=== PATIENT | female | born 2000 | race Hispanic/Latino ===

== ENCOUNTER 2020-12-23 22:14 | Emergency (ER) | payer OTHER ==
[~2020-12-23] VITALS: Ht 162.6 cm; Wt 76.7 kg
[2020-12-24 03:18] LABS: APPEARANCE, URINE HAZY (CLEAR); BACTERIA, URINE AUTO NEGATIVE (NEGATIVE); BILIRUBIN, URINE AUTO NEGATIVE (NEGATIVE); BLOOD, URINE BLOOD 2+ (NEGATIVE); COLOR, URINE YELLOW (YELLOW); GLUCOSE, URINE (UA) AUTO NEGATIVE (NEGATIVE); KETONE, URINE AUTO NEGATIVE (NEGATIVE); LEUKOCYTE ESTERASE, URINE AUTO NEGATIVE (NEGATIVE); MUCUS, URINE SMALL (NEGATIVE); NITRITE, URINE AUTO NEGATIVE (NEGATIVE); PROTEIN, URINE AUTO NEGATIVE (NEGATIVE); RBC, URINE AUTO 2 /HPF (0-3); SPECIFIC GRAVITY URINE AUTO 1.015 (1.002-1.035); SQUAMOUS EPITHELIAL CELL UR AU 3 /HPF (0-6); WBC, URINE AUTO 4 /HPF (0-3)
[2020-12-24] MEDS ORDERED: NS 1,000 ML IV ONE (04:30)
[2020-12-24 05:00] LABS: BASO % 0.2 % (0.0-1.0); EOS # 0.1 10^3/uL (0.0-0.5); EOS % 1.4 % (0.0-3.0); HEMATOCRIT 40.6 % (36.0-47.0); HEMOGLOBIN 13.4 g/dl (12.0-15.5); LYMPH # 2.4 10^3/uL (1.5-5.0); LYMPH % 47.4 % (24.0-44.0); MEAN CORPUSCULAR HEMOGLOBIN 26.9 pg (27.0-33.0); MEAN CORPUSCULAR VOLUME 81.5 fl (80.0-96.0); MONO # 0.3 10^3/uL (0.0-0.8); MONO % 5.3 % (2.0-8.0); NEUTROPHILS # 2.3 10^3/uL (1.5-8.5); NEUTROPHILS % 45.5 % (36.0-66.0); PLATELET COUNT, AUTOMATED 293 10^3/uL (150-450); RED BLOOD COUNT 4.98 10^6/uL (4.00-5.40); WHITE BLOOD COUNT 5.1 10^3/uL (4.0-10.0)
[2020-12-24 05:27] LABS: ALT/SGPT 22 U/L (12-78); BILIRUBIN,DIRECT 0.1 MG/DL (0.0-0.2); BILIRUBIN,TOTAL 0.4 MG/DL (0.2-1.0); BLOOD UREA NITROGEN 6 MG/DL (7-18); CALCIUM LEVEL 9.2 MG/DL (8.5-10.1); CARBON DIOXIDE LEVEL 28 MEQ/L (21-32); CHLORIDE LEVEL 106 MEQ/L (98-107); CREATININE FOR GFR 0.82 MG/DL (0.55-1.30); GLUCOSE, FASTING 76 MG/DL (70-100); LIPASE 65 U/L (73-393); POTASSIUM SERUM 3.4 MEQ/L (3.5-5.1); SODIUM LEVEL 139 MEQ/L (136-145); TOTAL PROTEIN 8.3 GM/DL (6.4-8.2)
[2020-12-24 05:52] LABS: HCG, SERUM QUANTITATIVE < 1.0 MIU/ML
[2020-12-24] MEDS ORDERED: KETOROLAC 30 MG/ML 1ML VIAL IV ONE (06:45)
[2020-12-24] MEDS ORDERED: ONDANSETRON 4MG/2ML VIAL IV ONE (06:45)
[2020-12-24] MEDS ORDERED: ACETAMINOPHEN 500 MG TAB PO ONE (07:50)
[2020-12-24] MEDS ORDERED: SUMAtriptan SUCCINATE 25 MG TAB PO ONE (07:50)
--- NOTE | 2020-12-24 08:25 | REP ---
INDICATION: intractable headache COMPARISON: None. TECHNIQUE: Axial noncontrast images from the skull base to the vertex with coronal reformations. This CT examination was performed using the following dose reduction techniques: Automated exposure control, adjustment of mA and/or kv according to the patient's size, and use of iterative reconstruction technique. FINDINGS: The ventricles, sulci, and cisterns are normal in position and appearance. [place]-white differentiation is maintained. No acute intracranial hemorrhage, mass/mass effect, pathology or trauma/injury. No evidence for acute infarction. No extra-axial fluid collection. Calvarium is intact. Paranasal sinuses and mastoid air cells are clear. IMPRESSION: Normal noncontrast head CT. No evidence for acute intracranial pathology or trauma/injury. <Electronically signed by Fab Carson > 12/24/20 [id number]
[2020-12-24] MEDS ORDERED: NS 500 ML IV ONE (10:15)
[2020-12-24] MEDS ORDERED: ONDA4TAB6 PO (10:49)
[2020-12-24 11:14] VITALS: BP 126/68
== END 2020-12-24 11:18 | disposition home or self-care (01) ==
LOC: M ED 22:14
DX: R51.9 Headache, unspecified (principal); R11.2 Nausea with vomiting, unspecified

== ENCOUNTER → 2021-03-05 | Outpatient (CLI) | payer OTHER ==
[~2021-03-05] MED LIST: ONDA4TAB6 PO
--- NOTE | 2021-03-05 15:34 | REP ---
INDICATION: ABNORMAL CXR. COMPARISON: None. TECHNIQUE: Imaging protocol: Computed tomography of the chest without IV contrast. Contiguous 3 mm thick axial projection images were obtained through the chest. 2D sagittal and coronal reconstructions were performed. Radiation optimization: All CT scans at this facility use at least one of these dose optimization techniques: automated exposure control; mA and/or kV adjustment per patient size (includes targeted exams where dose is matched to clinical indication); or iterative reconstruction. FINDINGS: Lower neck: The thyroid gland is normal. There is no supraclavicular lymphadenopathy. Mediastinum: No abnormal masses or lymphadenopathy. There is normal thymic tissue in the anterior mediastinum. Heart/thoracic aorta: The heart size is normal. There is no pericardial effusion. Upper abdomen: The visualized upper abdomen has a normal unenhanced appearance. Thoracic esophagus: Normal. Chest wall and axilla: The breasts and soft tissues of the chest wall appear normal. There is no axillary lymphadenopathy. There are no bony abnormalities of the chest. Lung parenchyma: The lungs are clear. There are no pulmonary nodules or masses. There is no interstitial or alveolar lung disease. There are no pleural effusions. IMPRESSION: Normal CT chest without IV contrast. <Electronically signed by Evens Long > 03/05/21 [id number]
== END ==
LOC: M PLAIMG 12:42
PROVIDERS: ATTEND Nurse Practitioner
DX: R91.8 Other nonspecific abnormal finding of lung field (principal)

== ENCOUNTER 2021-04-29 06:08 | Emergency (ER) | payer OTHER ==
[~2021-04-29] VITALS: Ht 165.1 cm; Wt 75.0 kg
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
[2021-04-29] MEDS ORDERED: NORCO, ANEXSIA 5/325MG TABLET (HYDROcodone/ACETAMINOPHEN) PO ONE (11:35)
[2021-04-29] MEDS ORDERED: PRENTAB29 PO (11:35)
[2021-04-29] MEDS ORDERED: ACET32TAB PO (11:40)
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
[2021-04-29 12:12] VITALS: BP 122/72
== END 2021-04-29 12:13 | disposition home or self-care (01) ==
LOC: M ED 06:08
DX: Z04.1 Encounter for examination and observation following transport accident (principal); Z3A.00 Weeks of gestation of pregnancy not specified

== ENCOUNTER → 2021-05-01 | Outpatient (CLI) | payer OTHER ==
[~2021-05-01] MED LIST changes: +ACET32TAB PO; +PRENTAB29 PO
== END ==
LOC: M LAB 12:51
PROVIDERS: ATTEND Internal Medicine
DX: Z04.1 Encounter for examination and observation following transport accident (principal)

== ENCOUNTER 2021-08-02 07:10 | Emergency (ER) | payer OTHER ==
[~2021-08-02] VITALS: Ht 165.1 cm; Wt 81.0 kg
[2021-08-02] MEDS ORDERED: ASPI81CH33 PO (07:17)
[2021-08-02] MEDS ORDERED: NS 1,000 ML IV ONE (08:25)
[2021-08-02] MEDS ORDERED: ACETAMINOPHEN 325 MG TAB PO ONE (08:25)
[2021-08-02 09:17] LABS: BASO % 0.2 % (0.0-1.0); EOS % 0.2 % (0.0-3.0); HEMATOCRIT 39.5 % (36.0-47.0); HEMOGLOBIN 13.9 g/dl (12.0-15.5); LYMPH # 0.6 10^3/uL (1.5-5.0); MEAN CORPUSCULAR HEMOGLOBIN 27.9 pg (27.0-33.0); MEAN CORPUSCULAR HGB CONC 35.2 g/dl (32.0-36.5); MEAN CORPUSCULAR VOLUME 79.2 fl (80.0-96.0); MONO # 0.4 10^3/uL (0.0-0.8); MONO % 6.1 % (2.0-8.0); NEUTROPHILS # 5.3 10^3/uL (1.5-8.5); NEUTROPHILS % 83.2 % (36.0-66.0); PLATELET COUNT, AUTOMATED 234 10^3/uL (150-450); RED BLOOD COUNT 4.99 10^6/uL (4.00-5.40); WHITE BLOOD COUNT 6.4 10^3/uL (4.0-10.0)
[2021-08-02 09:43] LABS: ALBUMIN 3.5 GM/DL (3.2-5.2); BILIRUBIN,DIRECT 0.1 MG/DL (0.0-0.2); BILIRUBIN,TOTAL 0.3 MG/DL (0.2-1.0); TOTAL PROTEIN 7.7 GM/DL (6.4-8.2)
[2021-08-02] MEDS ORDERED: NS 500 ML IV ONE (10:45)
[2021-08-02] MEDS ORDERED: OSEL75CA PO (11:05)
[2021-08-02] MEDS ORDERED: OSELTAMIVIR PHOSPHATE 75 MG CAP (TAMIFLU) PO ONE (11:05)
[2021-08-02] MEDS ORDERED: ONDA4TAB6 PO (13:00)
[2021-08-02 13:11] VITALS: BP 144/72
== END 2021-08-02 13:15 | disposition home or self-care (01) ==
LOC: M ED 07:10
DX: O99.512 Diseases of the respiratory system complicating pregnancy, second trimester (principal); J09.X9 Influenza due to identified novel influenza A virus with other manifestations; O99.282 Endocrine, nutritional and metabolic diseases complicating pregnancy, second trimester; E86.0 Dehydration; Z3A.17 17 weeks gestation of pregnancy; Z79.82 Long term (current) use of aspirin

== ENCOUNTER 2021-08-30 21:16 | Outpatient (CLI) | payer OTHER ==
[~2021-08-30] VITALS: Ht 165.1 cm; Wt 84.6 kg
[~2021-08-30 21:16] MED LIST changes: +ASPI81CH33 PO; +OSEL75CA PO
[2021-08-30] MEDS ORDERED: CALC500C15 PO (21:35)
[2021-08-30 21:36] VITALS: BP 142/85
[2021-08-30 22:37] LABS: AMORPHOUS SEDIMENT SMALL (NEGATIVE); APPEARANCE, URINE HAZY (CLEAR); BACTERIA, URINE AUTO NEGATIVE (NEGATIVE); BILIRUBIN, URINE AUTO NEGATIVE (NEGATIVE); BLOOD, URINE BLOOD NEGATIVE (NEGATIVE); COLOR, URINE YELLOW (YELLOW); GLUCOSE, URINE (UA) AUTO NEGATIVE (NEGATIVE); KETONE, URINE AUTO NEGATIVE (NEGATIVE); LEUKOCYTE ESTERASE, URINE AUTO NEGATIVE (NEGATIVE); NITRITE, URINE AUTO NEGATIVE (NEGATIVE); PROTEIN, URINE AUTO NEGATIVE (NEGATIVE); RBC, URINE AUTO 1 /HPF (0-3); SPECIFIC GRAVITY URINE AUTO 1.006 (1.002-1.035); SQUAMOUS EPITHELIAL CELL UR AU 1 /HPF (0-6); UROBILINOGEN, URINE AUTO 0.2 mg/dL (0.0-2.0); WBC, URINE AUTO 2 /HPF (0-3)
== END 2021-08-30 22:20 | disposition home or self-care (01) ==
LOC: M LDO 21:16
PROVIDERS: ATTEND Obstetrics & Gynecology
DX: O26.892 Other specified pregnancy related conditions, second trimester (principal); R10.2 Pelvic and perineal pain; Z3A.21 21 weeks gestation of pregnancy; O32.1XX0 Maternal care for breech presentation, not applicable or unspecified
CPT/HCPCS: 76815; 81001; 87086; G0463

== ENCOUNTER 2021-09-13 08:58 | Emergency (ER) | payer OTHER ==
[~2021-09-13] VITALS: Ht 165.1 cm; Wt 86.6 kg
[2021-09-13 08:58] VITALS: BP 141/70
[~2021-09-13 08:58] MED LIST changes: +CALC500C15 PO
[2021-09-13] MEDS ORDERED: ACET-683 PO (09:08)
[2021-09-13] MEDS ORDERED: ROBI1LIQ9 PO (09:08)
[2021-09-13 10:07] LABS: RSV AMPLIFICATION NEGATIVE (NEGATIVE)
[2021-09-13] MEDS ORDERED: ACETAMINOPHEN 500 MG TAB PO ONE (11:25)
[2021-09-13] MEDS ORDERED: LIDO2SOL17 PO (11:27)
[2021-09-13] MEDS ORDERED: MUCI1TAB16 PO (11:27)
== END 2021-09-13 13:06 | disposition home or self-care (01) ==
LOC: M ED 08:58
DX: R51.9 Headache, unspecified (principal); J02.9 Acute pharyngitis, unspecified; Z3A.23 23 weeks gestation of pregnancy; Z79.899 Other long term (current) drug therapy; Z79.82 Long term (current) use of aspirin

== ENCOUNTER 2021-11-17 16:17 | Outpatient (CLI) | payer OTHER ==
[~2021-11-17] VITALS: Ht 165.1 cm; Wt 90.9 kg
[~2021-11-17 16:17] MED LIST changes: +ACET-683 PO; +LIDO2SOL17 PO; +MUCI1TAB16 PO; +ROBI1LIQ9 PO
[2021-11-17 16:48] VITALS: BP 129/65
[2021-11-17] MEDS ORDERED: HOME MED LIST COMPLETE! XX SCH (16:50)
[2021-11-17 18:01] VITALS: BP 118/61
[2021-11-17 18:28] LABS: HEMATOCRIT 38.1 % (36.0-47.0); HEMOGLOBIN 13.4 g/dl (12.0-15.5); MEAN CORPUSCULAR HEMOGLOBIN 28.1 pg (27.0-33.0); MEAN CORPUSCULAR HGB CONC 35.2 g/dl (32.0-36.5); MEAN CORPUSCULAR VOLUME 79.9 fl (80.0-96.0); PLATELET COUNT, AUTOMATED 209 10^3/uL (150-450); RED BLOOD COUNT 4.77 10^6/uL (4.00-5.40); WHITE BLOOD COUNT 5.8 10^3/uL (4.0-10.0)
[2021-11-17 18:37] VITALS: BP 130/71
[2021-11-17 19:10] LABS: CREATININE,RANDOM URINE 55.7 MG/DL; TOTAL PROTEIN,RANDOM URINE 11.7 MG/DL (0.0-12.0)
[2021-11-17 19:13] LABS: ALT/SGPT 23 U/L (12-78); BILIRUBIN,TOTAL 0.2 MG/DL (0.2-1.0); CREATININE FOR GFR 0.49 MG/DL (0.55-1.30); GLOMERULAR FILTRATION RATE > 60.0 (>60); LDH LACTATE DEHYDROGENASE 226 U/L (84-246); URIC ACID 2.5 MG/DL (2.6-6.0)
== END 2021-11-17 18:34 | disposition home or self-care (01) ==
LOC: M LDO 16:17
PROVIDERS: ATTEND Obstetrics & Gynecology
DX: O26.893 Other specified pregnancy related conditions, third trimester (principal); Z3A.33 33 weeks gestation of pregnancy; O99.820 Streptococcus B carrier state complicating pregnancy; Z86.16 Personal history of COVID-19
CPT/HCPCS: 36415; 59025; 82247; 82565; 82570; 83615; 84156; 84450; 84460; 84550; 85027; G0463

== ENCOUNTER 2021-12-18 20:35 | Outpatient (CLI) | payer OTHER ==
[~2021-12-18] VITALS: Ht 167.6 cm; Wt 97.0 kg
[2021-12-18 21:15] VITALS: BP 136/86
[2021-12-18 21:22] VITALS: BP 137/92
[2021-12-18 21:29] VITALS: BP 137/92
[2021-12-18] MEDS ORDERED: METOCLOPRAMIDE 10MG TAB PO ONE (21:35)
[2021-12-18] MEDS ORDERED: diphenhydrAMINE 50MG CAP PO ONE (21:35)
[2021-12-18] MEDS ORDERED: ACETAMINOPHEN 325 MG TAB PO ONE (21:35)
[2021-12-18 21:54] VITALS: BP 138/83
[2021-12-18 22:21] LABS: HEMATOCRIT 37.9 % (36.0-47.0); HEMOGLOBIN 12.4 g/dl (12.0-15.5); MEAN CORPUSCULAR HEMOGLOBIN 26.8 pg (27.0-33.0); MEAN CORPUSCULAR HGB CONC 32.7 g/dl (32.0-36.5); MEAN CORPUSCULAR VOLUME 81.9 fl (80.0-96.0); PLATELET COUNT, AUTOMATED 213 10^3/uL (150-450); RED BLOOD COUNT 4.63 10^6/uL (4.00-5.40); WHITE BLOOD COUNT 6.7 10^3/uL (4.0-10.0)
[2021-12-18 22:24] VITALS: BP 128/92
[2021-12-18 22:47] LABS: CREATININE,RANDOM URINE 90.6 MG/DL; TOTAL PROTEIN,RANDOM URINE 11.6 MG/DL (0.0-12.0)
[2021-12-18 22:54] VITALS: BP 145/92
[2021-12-18 23:06] LABS: ALBUMIN 2.6 GM/DL (3.2-5.2); BILIRUBIN,DIRECT 0.2 MG/DL (0.0-0.2); BILIRUBIN,TOTAL 0.1 MG/DL (0.2-1.0); TOTAL PROTEIN 6.5 GM/DL (6.4-8.2)
== END 2021-12-18 23:56 | disposition home or self-care (01) ==
LOC: M LDO 20:35
PROVIDERS: ATTEND Registered Nurse
DX: O26.893 Other specified pregnancy related conditions, third trimester (principal); R51.9 Headache, unspecified; R03.0 Elevated blood-pressure reading, without diagnosis of hypertension; Z3A.36 36 weeks gestation of pregnancy
CPT/HCPCS: 36415; 59025; 80076; 82570; 84156; 85027; G0463

== ENCOUNTER 2022-01-05 04:20 | Inpatient (IN) | payer OTHER ==
[2022-01-05] VITALS (10 sets, daily range): BP systolic 118–186; BP diastolic 59–99
[~2022-01-05] VITALS: Ht 167.6 cm; Wt 98.1 kg
[2022-01-05] MEDS ORDERED: PENICILLIN G POTASSIUM IV 5 MU in D5W MINI-BAG PLUS 100 ML IV STA (06:19)
[2022-01-05] MEDS ORDERED: TRANEXAMIC ACID INJection 1,000 MG in NS 100 ML IV PRN (06:20)
[2022-01-05] MEDS ORDERED: LACTATED RINGER'S 1000 ML IV ONE (06:20)
[2022-01-05] MEDS ORDERED: OXYTOCIN INJ 10 UNITS/ML VIAL (J2590) IV PRN (06:20)
[2022-01-05] MEDS ORDERED: METHYLERGONOVINE MALEATE 0.2 MG/ML VIAL (J2210) IM PRN ×2 (06:20→12:35)
[2022-01-05] MEDS ORDERED: OXYTOCIN DRIP 30 UNITS in IV 1 EA IV PRN ×4 (06:20)
[2022-01-05 06:49] LABS: HEMATOCRIT 36.3 % (36.0-47.0); HEMOGLOBIN 12.5 g/dl (12.0-15.5); MEAN CORPUSCULAR HEMOGLOBIN 27.4 pg (27.0-33.0); MEAN CORPUSCULAR HGB CONC 34.4 g/dl (32.0-36.5); MEAN CORPUSCULAR VOLUME 79.4 fl (80.0-96.0); PLATELET COUNT, AUTOMATED 217 10^3/uL (150-450); RED BLOOD COUNT 4.57 10^6/uL (4.00-5.40); WHITE BLOOD COUNT 6.5 10^3/uL (4.0-10.0)
[2022-01-05] MEDS: LR 1,000 ML IV SCH ×3 (06:55→22:20)
[2022-01-05] MEDS ORDERED: BICITRA 30ML SOLN UDC PO ONE (07:00)
[2022-01-05] MEDS ORDERED: BUPIVACAINE HCL 0.25% 10ML VIAL SC ONE (07:00)
[2022-01-05] MEDS ORDERED: ceFAZolin SOD 2 GM in IV 1 EA IV ONE (07:00)
[2022-01-05] MEDS ORDERED: AZITHROMYCIN INJ 500 MG, VIAL MATE ADAPTER 1 EACH in NS 250 ML IV ONE (07:00)
[2022-01-05] MEDS ORDERED: ACETAMINOPHEN 650 MG SUPP PR ONE (07:00)
[2022-01-05] MEDS ORDERED: ONDANSETRON 4MG 2ML VIAL IV PRN ×2 (10:35→13:15)
[2022-01-05] MEDS ORDERED: ONDANSETRON 4MG 2ML VIAL IV ONE (10:35)
[2022-01-05] MEDS ORDERED: LR 1,000 ML IV SCH ×2 (10:35→13:15)
[2022-01-05] MEDS ORDERED: fentaNYL 100 MCG/2 ML INJECTION IV PRN ×2 (10:35→13:15)
[2022-01-05] MEDS ORDERED: oxyCODONE 5MG TAB PO PRN ×2 (10:35→13:15)
[2022-01-05] MEDS ORDERED: METOCLOPRAMIDE INJ 10MG/2ML VIAL (J2765 PER 1) IV PRN ×3 (10:35→15:10)
[2022-01-05] MEDS ORDERED: ONDANSETRON 4MG 2ML VIAL As Ordered ONE (10:46)
[2022-01-05] MEDS ORDERED: PENICILLIN G POTASSIUM IV 2.5 MU in IV 1 EA IV SCH (11:00)
[2022-01-05] MEDS ORDERED: MORPHINE PRES-FREE INJ 10 MG/10 ML VIAL As Ordered ONE (11:04)
[2022-01-05] MEDS ORDERED: OXYTOCIN INJ 10 UNITS/ML VIAL (J2590) As Ordered ONE (11:04)
[2022-01-05] MEDS ORDERED: KETOROLAC 60MG 2ML VIAL As Ordered ONE (12:10)
[2022-01-05] MEDS ORDERED: PHENYLephrine 500MCG 5ML (100MCG/ML) SYRINGE As Ordered ONE (12:10)
[2022-01-05] MEDS ORDERED: ACETAMINOPHEN TAB 650MG DOSE (2X325MG) PO PRN (12:35)
[2022-01-05] MEDS ORDERED: SIMETHICONE 80MG CHEW TAB PO PRN (12:35)
[2022-01-05] MEDS ORDERED: RHOGAM 300 MCG (1500 IU) INJ (J2790) IM SCH (12:35)
[2022-01-05] MEDS ORDERED: OXYTOCIN DRIP 30 UNITS in IV 1 EA IV SCH (12:35)
[2022-01-05] MEDS ORDERED: OXYTOCIN 30 UNITS IN 0.9% NaCl 500ML IV BAG (J2590) As Ordered ONE (12:35)
[2022-01-05] MEDS ORDERED: MORPHINE 2 MG/ML 1ML VIAL IV PRN (12:35)
[2022-01-05 12:38] LABS: CORD GAS ABE V -2.5; CORD GAS HCO3 V 23.8 MEQ/L; CORD GAS O2 SAT V 64.1 %; CORD GAS PCO2 V 46.3 mmHg; CORD GAS PH V 7.328 UNITS; CORD GAS PO2 V 29.7 mmHg; CORD GAS SBC V 21.5 MEQ/L; CORD GAS TCO2 V 25.2 MEQ/L
[2022-01-05 12:39] LABS: CORD GAS ABE A -4.3; CORD GAS HCO3 A 24.3 MEQ/L; CORD GAS O2 SAT A 23.2 %; CORD GAS PCO2 A 59.6 mmHg; CORD GAS PH A 7.228 UNITS; CORD GAS PO2 A 16.2 mmHg; CORD GAS SBC A 19.2 MEQ/L; CORD GAS TCO2 A 26.1 MEQ/L
[2022-01-05] MEDS ORDERED: METOCLOPRAMIDE INJ 10MG/2ML VIAL (J2765 PER 1) As Ordered ONE (13:47)
[2022-01-05] MEDS ORDERED: fentaNYL 100 MCG/2 ML INJECTION As Ordered ONE (14:01)
[2022-01-05] MEDS: SLF 3 ML SYR IV SCH ×2 (15:10→23:10)
[2022-01-05] MEDS ORDERED: NALOXONE INJ 0.4MG/1ML VIAL (J2310 PER 1MG) IV PRN ×2 (15:10)
[2022-01-05] MEDS ORDERED: **NOTE PATIENT COMMENT** MISC XX SCH (15:10)
[2022-01-05] MEDS ORDERED: diphenhydrAMINE 50MG/ML VIAL (J1200) IV PRN (15:10)
[2022-01-05] MEDS: KETOROLAC 30 MG/ML 1ML VIAL IV SCH (18:18)
[2022-01-05] MEDS: DOCUSATE SODIUM 100MG CAPSULE PO SCH (20:45)
[2022-01-05] MEDS: ENOXAPARIN 60MG/0.6ML SYRINGE (J1650 PER 10MG) SC SCH (21:33)
[2022-01-05] MEDS: ACETAMINOPHEN 500 MG TAB PO PRN (21:38)
[2022-01-06 02:00] VITALS: BP 122/59
[2022-01-06] MEDS: KETOROLAC 30 MG/ML 1ML VIAL IV SCH ×2 (05:39)
[2022-01-06 06:00] VITALS: BP 131/60
[2022-01-06] MEDS: LR 1,000 ML IV SCH ×3 (06:20→22:20)
[2022-01-06 06:49] LABS: HEMATOCRIT 30.8 % (36.0-47.0); MEAN CORPUSCULAR HEMOGLOBIN 27.4 pg (27.0-33.0); MEAN CORPUSCULAR HGB CONC 33.8 g/dl (32.0-36.5); MEAN CORPUSCULAR VOLUME 81.3 fl (80.0-96.0); PLATELET COUNT, AUTOMATED 199 10^3/uL (150-450); RED BLOOD COUNT 3.79 10^6/uL (4.00-5.40)
[2022-01-06 06:58] LABS: HEMOGLOBIN 10.4 g/dl (12.0-15.5)
[2022-01-06] MEDS ORDERED: oxyCODONE 5MG TAB PO PRN (09:45)
[2022-01-06] MEDS: oxyCODONE 5MG TAB PO PRN (10:10)
[2022-01-06] MEDS: DOCUSATE SODIUM 100MG CAPSULE PO SCH ×2 (10:12→21:28)
[2022-01-06] MEDS: PRENATAL VITAMINS CHEWABLE TABLET PO SCH (10:12)
[2022-01-06 14:00] VITALS: BP 138/78
[2022-01-06] MEDS: IBUPROFEN 800 MG TAB PO SCH ×2 (15:11→21:28)
[2022-01-06] MEDS: ACETAMINOPHEN 500 MG TAB PO PRN (16:57)
[2022-01-06 18:00] VITALS: BP 122/75
[2022-01-06] MEDS: SLF 3 ML SYR IV SCH (21:29)
[2022-01-06] MEDS: ENOXAPARIN 60MG/0.6ML SYRINGE (J1650 PER 10MG) SC SCH (21:55)
[2022-01-06 22:00] VITALS: BP 132/64
[2022-01-07 02:00] VITALS: BP 130/70
[2022-01-07] MEDS: oxyCODONE 5MG TAB PO PRN (03:56)
[2022-01-07] MEDS ORDERED: IBUP80TA PO (05:56)
[2022-01-07] MEDS ORDERED: ACET1TAB55 PO (05:56)
[2022-01-07] MEDS ORDERED: OXYC-517 PO (05:56)
[2022-01-07 06:00] VITALS: BP 121/73
[2022-01-07] MEDS: DOCUSATE SODIUM 100MG CAPSULE PO SCH (08:41)
[2022-01-07] MEDS: PRENATAL VITAMINS CHEWABLE TABLET PO SCH (08:41)
[2022-01-07] MEDS: IBUPROFEN 800 MG TAB PO SCH (08:41)
[2022-01-07] MEDS ORDERED: MEASLES,MUMPS,RUBELLA VACCINE INJ (MMR-II) (90707) SC.IMMUN ONE (09:00)
[2022-01-07 10:00] VITALS: BP 133/77
== END 2022-01-07 14:10 | disposition home or self-care (01) | DRG 773 ==
LOC: M LDO 04:20 → EEVIPCON 04:20 → M LDI 06:21 → M OBS 15:00
PROVIDERS: ADMIT Obstetrics & Gynecology; ATTEND Obstetrics & Gynecology
PROC: 10D00Z1 Extraction of Products of Conception, Low, Open Approach (ICD-10-PCS; principal; 2022-01-05 10:30)
DX: O32.8XX0 Maternal care for other malpresentation of fetus, not applicable or unspecified (principal); O77.0 Labor and delivery complicated by meconium in amniotic fluid; O99.824 Streptococcus B carrier state complicating childbirth; Z3A.39 39 weeks gestation of pregnancy; Z37.0 Single live birth

== ENCOUNTER 2022-04-14 17:00 | Day surgery (SDC) | payer OTHER ==
[~2022-04-14] VITALS: Ht 165.1 cm; Wt 83.6 kg
[~2022-04-14 17:00] MED LIST changes: +ACET1TAB55 PO; +IBUP80TA PO; +OXYC-517 PO
[2022-04-14] MEDS ORDERED: DOXYCYCLINE HYCLATE 100 MG in D5W MINI-BAG PLUS 100 ML IV STA ×4 (17:43)
[2022-04-14 18:11] LABS: HEMOGLOBIN 11.5 g/dl (12.0-15.5); MEAN CORPUSCULAR HEMOGLOBIN 26.5 pg (27.0-33.0); MEAN CORPUSCULAR HGB CONC 32.9 g/dl (32.0-36.5); MEAN CORPUSCULAR VOLUME 80.6 fl (80.0-96.0); PLATELET COUNT, AUTOMATED 333 10^3/uL (150-450); RED BLOOD COUNT 4.34 10^6/uL (4.00-5.40); WHITE BLOOD COUNT 5.3 10^3/uL (4.0-10.0)
[2022-04-14] MEDS ORDERED: SUCCINYLCHOLINE 100 MG/5 ML SYRINGE (J0330) As Ordered ONE (18:14)
[2022-04-14] MEDS ORDERED: KETOROLAC 60MG 2ML VIAL As Ordered ONE (18:14)
[2022-04-14] MEDS ORDERED: LIDOCAINE 2% 100MG/5ML SDV (FOR ANES.) As Ordered ONE (18:14)
[2022-04-14] MEDS ORDERED: MIDAZOLAM INJ 2MG/2ML VIAL (J2250 PER 1MG) As Ordered ONE (18:14)
[2022-04-14] MEDS ORDERED: fentaNYL 100 MCG/2 ML INJECTION As Ordered ONE (18:14)
[2022-04-14] MEDS ORDERED: ONDANSETRON 4MG 2ML VIAL As Ordered ONE (18:14)
[2022-04-14] MEDS ORDERED: propofoL 200 MG/20 ML VIAL As Ordered ONE (18:14)
[2022-04-14] MEDS ORDERED: ROCURONIUM BROMIDE 50 MG/5 ML VIAL As Ordered ONE (20:24)
[2022-04-14] MEDS ORDERED: LIDOCAINE 1% SDV 30ML VIAL As Ordered ONE (20:25)
[2022-04-14] MEDS ORDERED: SUGAMMADEX SODIUM 500 MG/5 ML VIAL (BRIDION) As Ordered ONE (20:41)
[2022-04-14] MEDS ORDERED: ACETAMINOPHEN 1000MG 100ML IV BAG As Ordered ONE (20:56)
[2022-04-14] MEDS ORDERED: SILVER NITRATE APPLICATOR (1 = QTY 10) As Ordered ONE (20:59)
[2022-04-14] MEDS ORDERED: fentaNYL 100 MCG/2 ML INJECTION IV PRN (21:10)
[2022-04-14] MEDS ORDERED: LR 1,000 ML IV SCH ×2 (21:10→22:50)
[2022-04-14] MEDS ORDERED: oxyCODONE 5MG TAB PO PRN ×2 (21:10→22:50)
[2022-04-14] MEDS ORDERED: ONDANSETRON 4MG 2ML VIAL IV PRN (21:10)
[2022-04-14 22:30] VITALS: BP 130/84
== END 2022-04-14 22:30 | disposition home or self-care (01) ==
LOC: M SDC 17:00
PROVIDERS: ATTEND Obstetrics & Gynecology
DX: O73.1 Retained portions of placenta and membranes, without hemorrhage (principal); M54.50 Low back pain, unspecified; G47.30 Sleep apnea, unspecified; F41.9 Anxiety disorder, unspecified; Z72.0 Tobacco use
CPT/HCPCS: 36415; 59160; 85027; 86850; 86900; 86901; 87635; 88305; J0131; J0330; J1100; J1885; J2250; J2405; J3010

== ENCOUNTER 2022-04-25 09:23 | Emergency (ER) | payer OTHER ==
[~2022-04-25] VITALS: Ht 160 cm; Wt 85.8 kg
[2022-04-25 09:24] VITALS: BP 127/96
== END 2022-04-25 09:59 | disposition left against medical advice (07) ==
LOC: M ED 09:23
DX: Z53.21 Procedure and treatment not carried out due to patient leaving prior to being seen by health care provider (principal)

== ENCOUNTER → 2024-03-21 | Outpatient (CLI) | payer OTHER ==
[~2024-03-21] MED LIST changes: +DOXE25CA; +DULO1CAP4; +IRON27TA2 PO; +LIDO15SO8 PO; -LIDO2SOL17 PO; +NOXI1TAB PO; +ONDA-282 PO; -ONDA4TAB6 PO; +XULA1DIS
[2024-03-21 12:46] LABS: BASO % 0.3 % (0.0-1.0); EOS % 0.6 % (0.0-3.0); HEMATOCRIT 41.2 % (36.0-47.0); HEMOGLOBIN 13.4 g/dl (12.0-15.5); LYMPH % 29.7 % (24.0-44.0); MEAN CORPUSCULAR HEMOGLOBIN 27.7 pg (27.0-33.0); MEAN CORPUSCULAR HGB CONC 32.5 g/dl (32.0-36.5); MEAN CORPUSCULAR VOLUME 85.3 fl (80.0-96.0); MONO # 0.3 10^3/uL (0.0-0.8); MONO % 4.2 % (2.0-8.0); NEUTROPHILS # 4.3 10^3/uL (1.5-8.5); PLATELET COUNT, AUTOMATED 320 10^3/uL (150-450); RED BLOOD COUNT 4.83 10^6/uL (4.00-5.40); WHITE BLOOD COUNT 6.6 10^3/uL (4.0-10.0)
[2024-03-21 13:06] LABS: FERRITIN 106.2 NG/ML (7.3-270.7)
[2024-03-21 13:07] LABS: PERCENT SATURATION 42.5 % (13.2-45.0)
== END ==
LOC: M LAB 11:49
PROVIDERS: ATTEND Internal Medicine Hematology & Oncology
DX: D50.9 Iron deficiency anemia, unspecified (principal)